=== PATIENT | male | born 1945 | race Caucasian/White ===

== ENCOUNTER 2018-12-01 11:19 | Inpatient (IN) | payer OTHER ==
[~2018-12-01] VITALS: Ht 160 cm; Wt 51.7 kg
[2018-12-01] MEDS ORDERED: GLIPIZIDE XL10 MG PO (11:24)
[2018-12-01] MEDS ORDERED: METFORMIN HCL500 MG (11:24)
[2018-12-01] MEDS ORDERED: MIRAPEX0.25 MG (11:25)
[2018-12-01] MEDS ORDERED: SINGULAIR10 MG PO (11:25)
--- NOTE | 2018-12-01 11:28 | NUR ---
PTE REFERIDO DE LAS OFICINA DEL POR DIFICULTAD RESPIRATORIA Y TOS
--- NOTE | 2018-12-01 14:14 | NUR ---
PACIENTE ALERTA,ACTIVO Y ORIENTADO.SE ORIENTA DE TRATAMIENTO HAYLEE ORDEN MEDICA REFIERE ENTENDER.SE CANALIZA,SE ADMINISTRAN MEDICAMENTOS Y SE HERNANDEZ MUESTRAS DE JANY HAYLEE ORDEN MEDICA.SE COLOCA EN MONITOR CARDIACO CON SATUROMETRO Y CANU- LA NASAL A 2 LITROS.SE CONTINUA MONITOREANDO POR CAMBIOS.
== END 2018-12-05 14:53 | disposition home or self-care (01) | DRG 191 ==
LOC: ER 11:19 → SEC-K 22:18 → MEDI 22:18
PROVIDERS: ADMIT Internal Medicine
PROC: 3E0F7GC Introduction of Other Therapeutic Substance into Respiratory Tract, Via Natural or Artificial Opening (ICD-10-PCS; principal; 2018-12-01)
PROC: BB24ZZZ Computerized Tomography (CT Scan) of Bilateral Lungs (ICD-10-PCS; 2018-12-04)
PROC: 4A033R1 Measurement of Arterial Saturation, Peripheral, Percutaneous Approach (ICD-10-PCS; 2018-12-04)
DX: J44.1 Chronic obstructive pulmonary disease with (acute) exacerbation (principal); J45.41 Moderate persistent asthma with (acute) exacerbation; Z79.4 Long term (current) use of insulin; J84.10 Pulmonary fibrosis, unspecified; G20 Parkinson's disease; E11.65 Type 2 diabetes mellitus with hyperglycemia; I10 Essential (primary) hypertension